=== PATIENT | female | born 1970 | race Caucasian/White ===

== ENCOUNTER 2019-01-12 12:52 | Emergency (ER) | payer MEDICAID ==
[~2019-01-12] VITALS: Ht 175.3 cm; Wt 114.6 kg
--- NOTE | 2019-01-12 13:00 | NUR ---
PATIENT C/O OF MILD PAIN IN RIGHT ANKLE WHILE WALKING
--- NOTE | 2019-01-12 14:49 | NUR ---
PATIENT PROVIDED LACE UP ANKLE BRACE PER MD; [facility]
[2019-01-12 14:51] VITALS: BP 129/71
== END 2019-01-12 13:50 | disposition home or self-care (01) ==
LOC: ER 12:52
DX: M25.571 Pain in right ankle and joints of right foot (principal); Z88.1 Allergy status to other antibiotic agents; X50.1XXA Overexertion from prolonged static or awkward postures, initial encounter; Y93.89 Activity, other specified; Y92.89 Other specified places as the place of occurrence of the external cause; Y99.9 Unspecified external cause status
CPT/HCPCS: 73610; 99283